=== PATIENT | female | born 1995 | race Caucasian/White ===

== ENCOUNTER 2018-08-21 23:45 | Emergency (ER) | payer OTHER ==
--- NOTE | 2018-08-22 00:14 | EDPHY ---
H & P Stated Complaint: lower abd pain, N/V after sex tonight Time Seen by Provider: 08/21/18 23:54 HPI/ROS: Chief Complaint: Pelvic pain, vomiting HPI: 20-year-old woman had acute onset of low abdominal pelvic pain immediately after sexual intercourse this evening. Patient then vomited once. Pain was a 10/10. No history of the same. It is central in low in her pelvis. Initially was 10/10. Is now down to a 5/10. Nausea has resolved. She does have an IUD in place. No history of ovarian cyst. She has never been . No fevers or chills. No cough. No urinary urgency or frequency. No abnormal bleeding or discharge. No vaginal pain. No pain with intercourse. ROS: 10 systems were reviewed and were negative except those elements noted in the HPI. PMH: Denies Social History: No smoking, no alcohol, no recreational drug use Family History: non-contributory Physical Exam: Gen: Awake, Alert, No Distress HEENT: Nose: no rhinorrhea Eyes: PERRLA, EOMI Mouth: Moist mucosa Neck: Supple, no JVD Chest: nontender, lungs clear to auscultation Heart: S1, S2 normal, no murmur Abd: Soft, moderate left adnexal tenderness without guarding, no guarding Back: no CVA tenderness, no midline tenderness Ext: no edema, non-tender Skin: no rash Neuro: CN II-XII intact, Sensation grossly intact, Strength 5/5 in bilateral upper and lower extremities - Personal History LMP (Females 10-55): IUD In Place Current Tetanus/Diphtheria Vaccine: Unsure - Medical/Surgical History Hx Asthma: No Hx Chronic Respiratory Disease: No Hx Diabetes: No Hx Cardiac Disease: No Hx Renal Disease: No Hx Cirrhosis: No Hx Alcoholism: No Hx HIV/AIDS: No Hx Splenectomy or Spleen Trauma: No Other PMH: denies - Social History Smoking Status: Never smoked Constitutional: Initial Vital Signs Temperature (C) 36.7 C 08/21/18 23:46 Heart Rate 80 08/21/18 23:46 Respiratory Rate 18 08/21/18 23:46 Blood Pressure 136/78 H 08/21/18 23:46 O2 Sat (%) 96 08/21/18 23:46 O2 Delivery Mode Room Air Allergies/Adverse Reactions: No Known Allergies Allergy (Unverified 08/21/18 23:48) Home Medications: Medication Instructions Recorded NK [No Known Home Meds] 08/21/18 Medical Decision Making - Diagnostics Imaging Results: EXAM: US Pelvis, Complete. CLINICAL HISTORY: Pelvic pain TECHNIQUE: Transvaginal and transabdominal pelvic ultrasound (complete) with image documentation. COMPARISON: None provided. FINDINGS: ENDOMETRIUM: Normal thickness. Measures 3 mm and demonstrates an IUD. UTERUS/CERVIX: Normal size and contour. No fibroid detected. Measures 7.0 x 3.0 x 4.6 cm RIGHT OVARY: Normal follicles. No adnexal mass. Normal blood flow. Measures 3.4 x 2.6 x 3.2 cm and demonstrates a 1.7 x 1.6 x 1.2 cm hemorrhagic cyst LEFT OVARY: Normal follicles. No adnexal mass. Normal blood flow. Measures 3.2 x 1.7 x 1.8 cm FREE FLUID: Trace cul-de-sac and right adnexal free fluid. IMPRESSION: Small hemorrhagic right ovarian cyst ELECTRONICALLY SIGNED BY: Vahe Lawton MD Aug 22, 2018 12:40:37 AM MDT ED Course/Re-evaluation: 22-year-old female with sudden onset of pelvic pain after sexual intercourse. Urinalysis is negative. She is not . Laboratory evaluations unremarkable. Ultrasound shows small right hemorrhagic ovarian cyst. Patient' s repeat exam is abdomen is soft and benign. Pain is improved. I have not given her any medications here. Will discharge with follow up with OBGYN. - Data Points Laboratory Results: Laboratory Results 08/22/18 00:08 08/22/18 00:00 08/22/18 08/22/18 08/22/18 00:08 00:08 00:00 WBC 9.28 10^3/uL 10^3/uL (3.80-9.50) RBC 4.42 10^6/uL 10^6/uL (4.18-5.33) Hgb 13.6 g/dL g/dL (12.6-16.3) Hct 40.0 % % (38.0-47.0) MCV 90.5 fL fL (81.5-99.8) MCH 30.8 pg pg (27.9-34.1) MCHC 34.0 g/dL g/dL (32.4-36.7) RDW 12.5 % % (11.5-15.2) Plt Count 225 10^3/uL 10^3/uL (150-400) MPV 10.8 fL fL (8.7-11.7) Neut % (Auto) 40.1 % % (39.3-74.2) Lymph % (Auto) 48.0 % H % (15.0-45.0) [place] % (Auto) 9.2 % % (4.5-13.0) Eos % (Auto) 2.0 % % (0.6-7.6) Baso % (Auto) 0.3 % % (0.3-1.7) Nucleat RBC Rel Count 0.0 % % (0.0-0.2) Absolute Neuts (auto) 3.72 10^3/uL 10^3/uL (1.70-6.50) Absolute Lymphs (auto) 4.45 10^3/uL H 10^3/uL (1.00-3.00) Absolute Monos (auto) 0.85 10^3/uL H 10^3/uL (0.30-0.80) Absolute Eos (auto) 0.19 10^3/uL 10^3/uL (0.03-0.40) Absolute Basos (auto) 0.03 10^3/uL 10^3/uL (0.02-0.10) Absolute Nucleated RBC 0.00 10^3/uL 10^3/uL (0-0.01) Immature Gran % 0.4 % % (0.0-1.1) Immature Gran # 0.04 10^3/uL 10^3/uL (0.00-0.10) Sodium 139 mEq/L mEq/L (135-145) Potassium 3.7 mEq/L mEq/L (3.5-5.2) Chloride 102 mEq/L mEq/L (97-110) Carbon Dioxide 26 mEq/l mEq/l (22-31) Anion Gap 11 mEq/L mEq/L (6-14) BUN 14 mg/dL mg/dL (7-23) Creatinine 0.7 mg/dL mg/dL (0.6-1.0) Estimated GFR > 60 Glucose 97 mg/dL mg/dL (70-100) Calcium 9.6 mg/dL mg/dL (8.5-10.4) Beta HCG, Qual NEGATIVE Urine Color Urine Appearance Urine pH Ur Specific [place] Urine Protein Urine Ketones Urine Blood Urine Nitrate Urine Bilirubin Urine Urobilinogen Ur Leukocyte Esterase Urine Glucose 08/22/18 00:00 WBC RBC Hgb Hct MCV MCH MCHC RDW Plt Count MPV Neut % (Auto) Lymph % (Auto) [place] % (Auto) Eos % (Auto) Baso % (Auto) Nucleat RBC Rel Count Absolute Neuts (auto) Absolute Lymphs (auto) Absolute Monos (auto) Absolute Eos (auto) Absolute Basos (auto) Absolute Nucleated RBC Immature Gran % Immature Gran # Sodium Potassium Chloride Carbon Dioxide Anion Gap BUN Creatinine Estimated GFR Glucose Calcium Beta HCG, Qual Urine Color YELLOW Urine Appearance CLEAR Urine pH 7.0 (5.0-7.5) Ur Specific [place] 1.014 (1.002-1.030) Urine Protein NEGATIVE (NEGATIVE) Urine Ketones NEGATIVE (NEGATIVE) Urine Blood NEGATIVE (NEGATIVE) Urine Nitrate NEGATIVE (NEGATIVE) Urine Bilirubin NEGATIVE (NEGATIVE) Urine Urobilinogen NEGATIVE EU EU (0.2-1.0) Ur Leukocyte Esterase NEGATIVE (NEGATIVE) Urine Glucose NEGATIVE (NEGATIVE) Departure - Departure Disposition: Home, Routine, Self-Care Clinical Impression: Ovarian cyst Condition: Good Instructions: Ovarian Cyst (ED) Additional Instructions: Follow up with OBGYN in 2-3 weeks if symptoms are not improving. Take ibuprofen, 600 mg every 8 hr. You may alternate with acetaminophen, 1000 mg every 8 hr. Return to the emergency department for worsening pain, vaginal discharge, abnormal bleeding, nausea vomiting, or any other concerns. Referrals: [facility] ([facility],. [Edm Groups for Call Sched] - As per Instructions
[2018-08-22 00:48] LABS: PLATELET COUNT 225 10^3/uL (150-400)
[2018-08-22 01:03] VITALS: BP 128/76
== END 2018-08-22 01:12 | disposition home or self-care (01) ==
DX: N83.291 Other ovarian cyst, right side (principal); Z97.5 Presence of (intrauterine) contraceptive device